=== PATIENT | female | born 1970 | race Hispanic/Latino ===

== ENCOUNTER 2018-05-31 15:52 | Emergency (ER) | payer BC, OTHER ==
[2018-05-31 16:01] VITALS: BP 125/80; PULSE 81; RESP 18; TEMP 98.1; O2SAT 100
--- NOTE | 2018-05-31 17:14 | RAD ---
Date of service: 05/31/2018 PROCEDURE: Radiographs of the Left Forearm HISTORY: pain, FOOSH COMPARISON: None available. TECHNIQUE: Frontal and lateral views obtained. FINDINGS: BONES: Questionable scaphoid fracture. JOINT SPACES: Unremarkable. OTHER FINDINGS: Dorsal wrist soft tissue swelling IMPRESSION: Questionable scaphoid fracture. Dorsal wrist soft tissue swelling. Dedicated wrist radiographs are recommended for further evaluation.
--- NOTE | 2018-05-31 17:15 | ED PDOC ---
Upper Extremity Pain/Injury Time Seen by Provider: 05/31/18 16:06 Chief Complaint (Nursing): Upper Extremity Problem/Injury Past Medical History Vital Signs: Last Vital Signs Temp 98.1 F 05/31/18 15:59 Pulse 81 05/31/18 15:59 Resp 18 05/31/18 15:59 BP 125/80 05/31/18 15:59 Pulse Ox 100 05/31/18 15:59 - Allergies Allergies/Adverse Reactions: Allergies Allergy/AdvReac Type Severity Reaction Status Date / Time Penicillins Allergy RASH Verified 05/31/18 15:58 - ECG O2 Sat by Pulse Oximetry: 100 Disposition - Clinical Impression Clinical Impression: Distal radius fracture, left - Patient ED Disposition Is Patient to be Admitted: No Counseled Patient/Family Regarding: Diagnosis, Need For Followup, Rx Given - Disposition Referrals: Drew Castaneda MD [Medical Doctor] - Disposition: Routine/Home Disposition Time: 17:08 Condition: GOOD Instructions: Radius Fracture
--- NOTE | 2018-05-31 17:15 | ED PDOC ---
Upper Extremity Pain/Injury Time Seen by Provider: 05/31/18 16:06 Chief Complaint (Nursing): Upper Extremity Problem/Injury Chief Complaint (Provider): Upper Extremity Problem/Injury History Per: Patient History/Exam Limitations: no limitations Onset/Duration Of Symptoms: Hrs (x2) Current Symptoms Are (Timing): Still Present Additional Complaint(s): 47 y/o female with no significant PMHx presents to the ED for evaluation of the left forearm s/p fall 2 hours prior to arrival. Patient states she and her were hiking when she was hit in the back of her legs by a dog, causing her to hold her left arm out to catch herself from the fall. Patient reports immediate pain to the left forearm. Patient denies taking any medications prior to arrival for pain relief. Patient complains of localized swelling at this time. PMD: Dr. Burk Past Medical History Reviewed: Historical Data, Nursing Documentation, Vital Signs Vital Signs: Last Vital Signs Temp 98.1 F 05/31/18 15:59 Pulse 81 05/31/18 15:59 Resp 18 05/31/18 15:59 BP 125/80 05/31/18 15:59 Pulse Ox 100 05/31/18 15:59 - Medical History PMH: No Chronic Diseases - Surgical History Surgical History: No Surg Hx - Family History Family History: States: Unknown Family Hx - Allergies Allergies/Adverse Reactions: Allergies Allergy/AdvReac Type Severity Reaction Status Date / Time Penicillins Allergy RASH Verified 05/31/18 15:58 Review of Systems ROS Statement: Except As Marked, All Systems Reviewed And Found Negative Musculoskeletal: Positive for: Arm Pain (left arm pain) Physical Exam - Reviewed Nursing Documentation Reviewed: Yes Vital Signs Reviewed: Yes - Physical Exam Appears: Positive for: No Acute Distress Head Exam: Positive for: ATRAUMATIC Skin: Positive for: Normal Color, Warm, Dry Eye Exam: Positive for: Normal appearance Neck: Positive for: Normal Cardiovascular/Chest: Negative for: Bradycardia, Tachycardia Respiratory: Negative for: Accessory Muscle Use, Respiratory Distress Extremity: Positive for: Tenderness (of the mid-shaft of the radius and ulna), Capillary Refill (< 2 seconds), Swelling (area of swelling posterior distal radius), Other (Sensations intact. ). Negative for: Deformity (no gross, bony deformity) Neurologic/Psych: Positive for: Alert, Oriented (x3). Negative for: Motor/Sensory Deficits - ECG O2 Sat by Pulse Oximetry: 100 (RA) Pulse Ox Interpretation: Normal Medical Decision Making Medical Decision Making: Time: 1613 Plan: -- Forearm Left XR -- Patient would not like any medications at this time. -- Abnormalities seen on XR on AP & Lateral views -- Will treat as fracture. Scribe Attestation: Documented by Romaine Webber, acting as a scribe for Damari Brown PA-C. Provider Scribe Attestation: All medical record entries made by the Scribe were at my direction and personally dictated by me. I have reviewed the chart and agree that the record accurately reflects my personal performance of the history, physical exam, medical decision making, and the department course for this patient. I have also personally directed, reviewed, and agree with the discharge instructions and disposition. Disposition - Clinical Impression Clinical Impression: Distal radius fracture, left - Patient ED Disposition Is Patient to be Admitted: No Counseled Patient/Family Regarding: Diagnosis, Need For Followup - Disposition Referrals: Drew Castaneda MD [Medical Doctor] - Disposition: Routine/Home Disposition Time: 17:08 Condition: GOOD Instructions: Radius Fracture Forms: [employer] ([place]ib[place])
== END 2018-05-31 17:35 | disposition home or self-care (01) ==
LOC: H.ER 15:52
DX: S52.502A Unspecified fracture of the lower end of left radius, initial encounter for closed fracture (principal); W19.XXXA Unspecified fall, initial encounter; Y92.89 Other specified places as the place of occurrence of the external cause; Z88.0 Allergy status to penicillin